=== PATIENT | male | born 1960 | race Two or more races ===

== ENCOUNTER 2018-07-10 03:37 | Emergency (ER) | payer SELFPAY ==
[~2018-07-10] VITALS: Ht 170.2 cm; Wt 99.8 kg
[2018-07-10] MEDS ORDERED: diphenhdrAMINE HCL 50 MG/1 ML VL ONE (03:50)
[2018-07-10] MEDS ORDERED: HYDROcodone-ACET 10/325MG TAB PO ONE (04:45)
[2018-07-10] MEDS ORDERED: KETOROLAC TROMETH 60MG/2ML VIAL IM ONE (04:45)
[2018-07-10 06:10] VITALS: BP 156/90
== END 2018-07-10 06:10 | disposition home or self-care (01) ==
LOC: EDBD 03:37 → ER 03:37
DX: S43.101A Unspecified dislocation of right acromioclavicular joint, initial encounter (principal); E78.5 Hyperlipidemia, unspecified; V43.52XA Car driver injured in collision with other type car in traffic accident, initial encounter; Y93.89 Activity, other specified; Y99.8 Other external cause status; Y92.410 Unspecified street and highway as the place of occurrence of the external cause
CPT/HCPCS: 70450; 73030; 74176; 96372; 99284; J1885; J7030